=== PATIENT | female | born 1975 | race Caucasian/White ===

== ENCOUNTER 2025-11-02 10:31 | Inpatient (IN) | payer OTHER ==
[2025-11-02] VITALS (36 sets, daily range): BP systolic 83–122; BP diastolic 64–87
[~2025-11-02] VITALS: Ht 162.6 cm; Wt 52.3 kg
[2025-11-02] MEDS ORDERED: DiphenhydrAMINE HCl 50 MG/ML 1ML Vial ONE (10:38)
[2025-11-02] MEDS ORDERED: Dexamethasone Sod Phos 10 MG/ML 1ML VIAL ONE (10:38)
[2025-11-02] MEDS ORDERED: Ipratropium/Albuterol SulF 2.5-0.5MG/3 ML Amp ONE (10:40)
[2025-11-02] MEDS ORDERED: EpiNEPhrine 1 MG/1 ML 1ML Vial ONE (10:40)
[2025-11-02] MEDS ORDERED: Albuterol 2.5 MG/3 ML VIAL ONE (10:44)
[2025-11-02] MEDS ORDERED: EpiNEPhrine 1 MG/1 ML 1ML Vial IM ONE (10:45)
[2025-11-02] MEDS ORDERED: Albuterol 2.5 MG/3 ML VIAL INH SCH (10:45)
[2025-11-02] MEDS ORDERED: Dexamethasone Sod Phos 10 MG/ML 1ML VIAL IV ONE (10:45)
[2025-11-02] MEDS ORDERED: DiphenhydrAMINE HCl 50 MG/ML 1ML Vial IV ONE ×2 (10:45→16:23)
[2025-11-02] MEDS ORDERED: NS 1,000 ML IV ONE (10:50)
[2025-11-02 10:59] LABS: BASOPHILS ABSOLUTE AUTO 0.10 K/mm3 (0.00-0.23); BASOPHILS PERCENT AUTO 1 % (0-2); EOSINOPHILS ABSOLUTE AUTO 0.46 K/mm3 (0.00-0.68); EOSINOPHILS PERCENT AUTO 4 % (0-6); Hematocrit 40.4 % (33.0-51.0); Hemoglobin 12.6 g/dL (11.5-16.0); IMMATURE GRAN ABSOLUTE AUTO 0.25 K/mm3 (0.00-0.10); IMMATURE GRAN PERCENT AUTO 2 % (0-1); LYMPHOCYTES ABSOLUTE AUTO 4.69 K/mm3 (0.84-5.20); LYMPHOCYTES PERCENT AUTO 35 % (21-46); MONOCYTES ABSOLUTE AUTO 0.68 K/mm3 (0.16-1.47); MONOCYTES PERCENT AUTO 5 % (4-13); Mean Corpuscular HGB Conc 31.2 g/dL (31.5-36.5); Mean Corpuscular Volume 96 fL (80-100); NEUTROPHILS ABSOLUTE AUTO 7.05 K/mm3 (1.96-9.15); NEUTROPHILS PERCENT AUTO 53 % (41-73); NRBC ABSOLUTE 0.00 K/mm3 (0.00-0.02); NRBC Auto 0.0 /100 WBC (0.0-0.2); Platelet Count 346 K/mm3 (150-400); RDW Coefficient Variation 14.3 % (11.7-14.2); RDW Standard Deviation 50.5 fL (35.1-46.3)
[2025-11-02] MEDS ORDERED: Midazolam HCl 1MG / ML 2ML Vial IV ONE ×2 (11:00→16:23)
[2025-11-02 11:16] LABS: Alanine Aminotransfer (ALT/SGP 47.0 U/L (12-78); Albumin, Blood 3.7 g/dL (3.4-5.0); Albumin/Globulin Ratio 1.1 (0.8-1.8); Anion Gap 18.0 mmol/L (3-11); Aspartate Aminotrans (AST/SGOT 39.0 U/L (12-37); Bilirubin, Total 0.4 mg/dL (0.1-1.0); Blood Urea Nitrogen 11.0 mg/dL (8-24); CO2, Blood 18.0 mmol/L (21-32); Calcium, Blood 8.7 mg/dL (8.5-10.1); Chloride, Blood 106.0 mmol/L (98-108); Creatinine, Blood 0.79 mg/dL (0.40-1.00); Globulin, Blood 3.5 g/dL (2.2-4.0); Glucose, Blood 333.0 mg/dL (70-99); Potassium, Blood 3.8 mmol/L (3.5-5.5); Sodium, Blood 138.0 mmol/L (136-145); Total Protein, Blood 7.2 g/dL (6.4-8.2)
[2025-11-02 11:58] LABS: Influenza A, PCR NEGATIVE (NEGATIVE); Influenza B, PCR NEGATIVE (NEGATIVE); Resp Syncytial Virus, PCR NEGATIVE (NEGATIVE); SARS-Cov-2 (COVID-19) PCR, MMC NEGATIVE (NEGATIVE)
[2025-11-02] MEDS ORDERED: Midazolam HCL 1 MG/ML 5MLVIAL IV ONE (12:10)
[2025-11-02 12:13] LABS: U Amphetamine Screen Not Detected; U Barbiturate Screen Not Detected; U Benzodiazapine Screen Not Detected; U Buprenorphine Screen Not Detected; U Cannabinoids Screen Not Detected; U Cocaine Screen Not Detected; U Methadone Screen Not Detected; U Methamphetamine Screen Not Detected; U Opiates Screen Not Detected; U Oxycodone Screen Not Detected; U Phencyclidine Screen Not Detected
[2025-11-02] MEDS ORDERED: Hair, Skin & N1 EACH PO (12:34)
[2025-11-02] MEDS ORDERED: FLU VACC TS2025-26(6MOS UP)/PF 45 MCG/0.5 ML SYRINGE IM SCH (12:45)
[2025-11-02] MEDS ORDERED: NS 1,000 ML IV SCH (13:00)
--- NOTE | 2025-11-02 13:31 | NUR ---
PT ARRIVES TO ICU ROOM 9. PT INTUBATED, CURRENT VENT SETTINGS ACVC: 20/380/5/35%, BILATERAL UPPER WRIST RESTRAINTS. PROPOFOL RUNNIING AT 25MCG/KG/MIN, FENTANYL 25MCG/HR. SINUS TACH VIA CONTINUOUS MONITOR, RATE OF 110S. BP STABLE, MAP>65. PT AFEBRILE.
[2025-11-02] MEDS ORDERED: Albuterol 2.5 MG/3 ML VIAL INH PRN (14:20)
[2025-11-02] MEDS ORDERED: Ipratropium/Albuterol SulF 2.5-0.5MG/3 ML Amp INH SCH (14:20)
[2025-11-02] MEDS ORDERED: ALBU90OI INH (14:55)
[2025-11-02] MEDS ORDERED: Etomidate 2MG / ML 10ML Vial IV ONE (16:23)
[2025-11-02] MEDS ORDERED: SuccINYLCHOLINE Chloride 100 MG/5 ML 5MLSYR IV ONE (16:23)
[2025-11-02] MEDS ORDERED: Naloxone HCl 1MG / ML 2ML SYR IV ONE (16:23)
[2025-11-02] MEDS ORDERED: Propofol 10mg/ml 20 ml Vial (Procedural) IV ONE (16:23)
--- NOTE | 2025-11-02 19:07 | NUR ---
SHIFT SUMMARY ACQUIRED PT AT APPROX 1530. NEURO: RESPONSIVE TO LOUD VERBAL STIMULI, +GAG, COUGH AND SWALLOW. OPENS EYES BUT DOES NOT TRACK. CURRENTLY SEDATED WITH PROPOFOL AND FENTANYL. NOT FOLLOWING COMMANDS. CARDIAC: SINUS TACH, HR 100-110S. SBP 80-110S. REPEAT EKG COMPLETED. PLAN FOR ECHO TOMORROW. PULM: LUNGS CLEAR TO AUSCULATION BUT DIM IN BILAT BASES.ET. 7.5CM, 24 AT THE TEETH. INTUBATED ACVC 20/380/5/30. INITALLY SOME THICK WHITE SPUTUM FROM ET TUBE BUT NOT RESOLVED. GI: ABDOMEN IS SOFT/NON TENDER, NORMOACTIVE BOWEL TONES. : HOFFMAN CATH IN PLACE DRAINING CLEAR YELLOW URINE TO GRAVITY. SKIN: INTACT. AT BEDSIDE PROVIDED EDUCATION AND PLAN OF CARE. HER SISTER AND FATHER
[2025-11-02] MEDS ORDERED: Cetylpyridinium Chloride 1 EA MISC MT SCH (20:00)
[2025-11-02 20:10] LABS: Acinetobacter baumannii DNA Not Detected copy/mL (NOT DETECT); Chlamydia pneumonia Not Detected (NOT DETECT); Enterobacter cloacae DNA Not Detected copy/mL (NOT DETECT); Escherichia coli DNA Not Detected copy/mL (NOT DETECT); Haemophilus influenzae DNA Not Detected copy/mL (NOT DETECT); Human Coronavirus RNA Not Detected (NOT DETECT); Klebsiella aerogenes DNA Not Detected copy/mL (NOT DETECT); Klebsiella oxytoca DNA Not Detected copy/mL (NOT DETECT); Klebsiella pneumoniae DNA Not Detected copy/mL (NOT DETECT); Moraxella catarrhalis DNA Not Detected copy/mL (NOT DETECT); Proteus sp DNA Not Detected copy/mL (NOT DETECT); Pseudomonas aeruginosa DNA Not Detected copy/mL (NOT DETECT); Serratia marcescens DNA Not Detected copy/mL (NOT DETECT); Staphylococcus aureus DNA Not Detected copy/mL (NOT DETECT); Streptococcus agalactiae DNA Not Detected copy/mL (NOT DETECT); Streptococcus pneumoniae DNA Not Detected copy/mL (NOT DETECT); Streptococcus pyogenes DNA Not Detected copy/mL (NOT DETECT)
[2025-11-02 20:11] LABS: Human Metapneumovirus RNA Not Detected (NOT DETECT); Influenza virus A RNA Not Detected (NOT DETECT); Influenza virus B RNA Not Detected (NOT DETECT); Respiratory syncytial Vir RNA Not Detected (NOT DETECT); Rhinovirus+Enterovirus RNA Detected (NOT DETECT)
[2025-11-02] MEDS ORDERED: LORazepam 2 MG/ML 1ML Injection IV PRN (20:15)
--- NOTE | 2025-11-02 20:50 | NUR ---
ASSUMPTION OF CARE: ASSUMED CARE AT START OF SHIFT (1899). REPORT RECEIVED FROM DAY SHIFT RN. PT IS DOING WELL AND RESTING IN BED. PT IS ALERT TO STIMULI AND WILL TRY TO SIT UP AND LEAV FORWARD WHEN THERE IS TOO MUCH STIMULUS PRESENT. THEY ARE INTUBATED AND ON PROPOFOL AND FENTANYL GTT PER EMR ORDERS. LUNG SOUNDS ARE CLEAR AND EQUAL, VENT SETTINGS: ACVC- 20/380/5/30%. SINUS TACH WITH SBP: 80-90'S MAP >65 HR: 100'S. IV: PERIPHERAL IN LAC, RAC, AND R HAND. HOFFMAN CATHETER IN PALCE AND DRAINING TO GRAVITY. LINES, CORDS, AND TUBES PLACED OUT OF REACH. CALL LIGHT PLACED WITHIN REACH.
[2025-11-03] VITALS (66 sets, daily range): BP systolic 83–135; BP diastolic 61–103
[2025-11-03] MEDS ORDERED: Hydrogen Peroxide 1.5 % Solution MT SCH
[2025-11-03 03:49] LABS: pH Blood Venous 7.39 (7.34-7.37)
[2025-11-03 04:23] LABS: Hematocrit 38.0 % (33.0-51.0); Hemoglobin 12.3 g/dL (11.5-16.0); Mean Corpuscular HGB Conc 32.4 g/dL (31.5-36.5); NRBC ABSOLUTE 0.00 K/mm3 (0.00-0.02); NRBC Auto 0.0 /100 WBC (0.0-0.2); Platelet Count 278 K/mm3 (150-400); RDW Coefficient Variation 14.7 % (11.7-14.2); RDW Standard Deviation 49.2 fL (35.1-46.3)
[2025-11-03 04:24] LABS: Mean Corpuscular Volume 91 fL (80-100)
[2025-11-03 05:05] LABS: Magnesium, Blood 2.4 mg/dL (1.6-2.4)
[2025-11-03 05:47] LABS: Albumin, Blood 3.6 g/dL (3.4-5.0); Anion Gap 9 mmol/L (3-11); Blood Urea Nitrogen 16 mg/dL (8-24); CO2, Blood 21 mmol/L (21-32); Calcium, Blood 8.3 mg/dL (8.5-10.1); Chloride, Blood 114 mmol/L (98-108); Creatinine, Blood 0.77 mg/dL (0.40-1.00); Glucose, Blood 144 mg/dL (70-99); Phosphorus, Blood 2.0 mg/dL (2.5-4.9); Potassium, Blood 3.6 mmol/L (3.5-5.5); Sodium, Blood 140 mmol/L (136-145)
--- NOTE | 2025-11-03 06:21 | NUR ---
SHIFT SUMMARY: PT IS DOING WELL AND RESTING IN BED. NO ACUTE CHANGES THROUGHOUT THE SHIFT. PT REMAINS INTUBATED AND SEDATED. PT ALERT TO PAINFUL STIMULI. PROPOFOL AND FENTANYL GTT PER EMR ORDERS. VITAL SIGNS REMAIN STABLE. VENT: ACVC- 20/380/5/30%. HOFFMAN CATHETER IN PLACE AND DRAINING TO GRAVITY. LINES, CORDS, AND TUBES PLACED OUT OF REACH. CALL LIGHT PLACED WITHIN REACH.
--- NOTE | 2025-11-03 07:18 | NUR ---
ASSUMED CARE THIS RN ASSUMED CARE OF PATIENT AT 0700 WITH PRECEPTOR MAURISIO LOGAN. PATIENT IS RESTING W/ EYES CLOSED INTUBATED AND SEDATED DURING BSSR. SHE HAS SBW RESTRAINTS. VENT SETTINGS ARE 20/380/5/30% WITH HER SPO2 >96%. SYSTOLIC BP >90, MAP >65. MONITOR SHOWS NSR 80-90S. PATIENT IS ON PROPOFOL 50MCG/KG/MIN, FENTANYL 50MCG/HR AND NS. HER OG TUBE IS CLAMPED. PATIENT HAS HOFFMAN CATHETER PATENT AND DRAINING URINE TO GRAVITY. PATIENT'S SIGNIFICANT OTHER IS SLEEPING IN RECLINER NEAR BED.
[2025-11-03] MEDS ORDERED: Potassium Phosphate Dibasic 20 MM in Dextrose 5% 500 ML IV STA (07:24)
--- NOTE | 2025-11-03 07:45 | NUR ---
PATIENT BELONGING WEDDING BAND REMOVED FROM LEFT RING FINGER AND PLACED IN SPECIMEN CUP IN LOCK BOX IN ROOM. PATIENT FATHER INFORMED D/T PATIENT BEING INTUBATED AND SEDATED.
[2025-11-03] MEDS ORDERED: Enoxaparin 40 MG/0.4 ML SYR SC SCH (09:00)
--- NOTE | 2025-11-03 16:01 | NUR ---
PATIENT BELONGING WEDDING BAND FROM LOCK BOX AND RING FROM RIGHT HAND RING FINGER TAKEN BY PATIENT'S SIGNIFICANT OTHER FOR SAFEKEEPING.
--- NOTE | 2025-11-03 17:59 | NUR ---
SHIFT SUMMARY NO ACUTE EVENTS THIS SHIFT. PATIENT WAS EXTUBATED THIS AM AT 1020 AND RESPONDED WELL. SHE HAS BEEN ALERT AND ORIENTED TO PLACE, SITUATION, PERSON, AND FAMILY BUT CONFUSED TO HOW SHE GOT INTO THE HOSPITAL. SHE ASKS THE SAME QUESTIONS REPETITIVELY. OTHERWISE HER SPO2 HAS BEEN >98% WITH EVEN UNLABORED RESPIRATIONS. HER LUNGS HAVE BEEN COARSE W/ WHEEZING WITH A PERSISTENT COUGH. SHE EXPECTORATES A MODERATE AMOUNT OF THICK WILEY/CLEAR SECRETIONS. SYSTOLIC BP >120, MAP >90. MONITOR SHOWS NSR. PATIENT STATES SHE HAS CHEST PAIN FROM HER STERNUM AND DECLINES OPIOID PAIN MEDICATION. SHE ELECTS TO DO NONPHARMACOLOGICAL MEASURES LIKE REST, BRACING WITH A PILLOW, AND DISTRACTION. SHE IS ABLE TO USE A BSC WITH 2 NURSE ASSIST. SHE IS WEAK AND UNSTEADY ON HER FEET. BED IN LOWEST POSITION, CALL LIGHT IN REACH.
--- NOTE | 2025-11-03 19:41 | NUR ---
ASSUME CARE: BEDSIDE SHIFT REPORT RECIEVED FROM DAYSHIFT RN. PT A/Ox4 AND ABLE TO ANSWER QUESTIONS APPROPRIATELY, PT IS OCCASIONALLY CONFUSED ON WHY SHE IS HERE, AND EVENTS OF THE DAY, BUT EASILY REDIRECTABLE. SBP 120s, MAP>65. PT DENIES CP OR PRESSURE, BUT DOES COMPLAIN OF SOME RIB PAIN FROM CPR SHE RECEIVED. MONITOR SHOWS SINUS TACH, RATE 110s. SPO2>90% ON RA, LS COARSE, WITH OCCASIONAL WHEEZES CLEARED BY COUGHING. PT ABLE TO USE BSC WITH 2P ASSIST, WEAK AND UNSTEADY ON FEET. PLAN FOR NPO AT 0000 FOR PRODEDURE IN AM. CALL LIGHT IN REACH AND BED ALARM ON FOR SAFETY. WILL UPDATE NEEDED.
[2025-11-04] VITALS (31 sets, daily range): BP systolic 105–145; BP diastolic 70–131
[2025-11-04 03:54] LABS: BASOPHILS ABSOLUTE AUTO 0.03 K/mm3 (0.00-0.23); BASOPHILS PERCENT AUTO 0 % (0-2); EOSINOPHILS ABSOLUTE AUTO 0.01 K/mm3 (0.00-0.68); EOSINOPHILS PERCENT AUTO 0 % (0-6); Hematocrit 32.6 % (33.0-51.0); Hemoglobin 11.0 g/dL (11.5-16.0); IMMATURE GRAN ABSOLUTE AUTO 0.27 K/mm3 (0.00-0.10); IMMATURE GRAN PERCENT AUTO 1 % (0-1); LYMPHOCYTES ABSOLUTE AUTO 0.91 K/mm3 (0.84-5.20); LYMPHOCYTES PERCENT AUTO 4 % (21-46); MONOCYTES ABSOLUTE AUTO 0.58 K/mm3 (0.16-1.47); MONOCYTES PERCENT AUTO 2 % (4-13); Mean Corpuscular HGB Conc 33.7 g/dL (31.5-36.5); Mean Corpuscular Volume 89 fL (80-100); NEUTROPHILS ABSOLUTE AUTO 22.57 K/mm3 (1.96-9.15); NEUTROPHILS PERCENT AUTO 93 % (41-73); NRBC ABSOLUTE 0.00 K/mm3 (0.00-0.02); NRBC Auto 0.0 /100 WBC (0.0-0.2); Platelet Count 263 K/mm3 (150-400); RDW Coefficient Variation 15.3 % (11.7-14.2); RDW Standard Deviation 50.2 fL (35.1-46.3)
[2025-11-04 04:37] LABS: Anion Gap 8.0 mmol/L (3-11); Blood Urea Nitrogen 13.0 mg/dL (8-24); CO2, Blood 23.0 mmol/L (21-32); Calcium, Blood 8.4 mg/dL (8.5-10.1); Chloride, Blood 112.0 mmol/L (98-108); Creatinine, Blood 0.55 mg/dL (0.40-1.00); Glucose, Blood 130.0 mg/dL (70-99); Magnesium, Blood 2.2 mg/dL (1.6-2.4); Phosphorus, Blood 3.8 mg/dL (2.5-4.9); Potassium, Blood 4.4 mmol/L (3.5-5.5); Sodium, Blood 139.0 mmol/L (136-145)
--- NOTE | 2025-11-04 05:06 | NUR ---
SHIFT SUMMARY: PT A/Ox4, COOPERATIVE W/CARE, AND ABLE TO SLEEP FOR MOST OF THE NIGHT. PT TEARFUL AND ANXIOUS ABOUT HER CURRENT SITUATION. VSS. MONITOR SHOWS SINUS RYTHM TO SINUS TACH, RATE 80-100s. PT DESAT TO 88% W/SLEEP, 1L NC PLACED FOR SPO2>90%. PT HAS HARSH PRODUCTIVE COUGH. MEDICATED PER EMAR FOR PAIN IN HER RIBS. PT UP TO BSC 1P ASSIST. NPO AT 0000 FOR AM PROCEDURE. CALL LIGHT IN REACH. WILL REPORT TO ONCOMING RN.
--- NOTE | 2025-11-04 08:00 | NUR ---
RECEIVED REPORT FROM [facility] NURSE. PT IS SLEEPING BUT AWAKES TO VERBAL STIMULI. PT ABLE TO STATE NAME AND , WAS UNSURE WHAT HOSPITAL SHE WAS AT. REORIENTED EASILY. PT ON 1L NC WHILE SLEEPING. PT IN NSR, HR IN 70-80S MAP >65. PT AMBULATES TO [facility] [place] WITH NURSE ASSIST. PT HAS TWO PIVS, WNL. PT REPORTS SORENES LOCATED ON HER CHEST D/T CPR. PT HAS FAMILY AT BEDSIDE, CALL LIGHT WITHIN REACH AND NO NEEDS REPORTED AT THIS TIME.
--- NOTE | 2025-11-04 11:11 | NUR ---
CONSULT RECEIVED AND REVIEWED. NO POLST/AD ON FILE OR THROUGH OPR.
[2025-11-04] MEDS ORDERED: Ipratropium/Albuterol SulF 2.5-0.5MG/3 ML Amp INH SCH (11:35)
[2025-11-04] MEDS ORDERED: Albuterol HFA200 ACT/6.7 GM INH INH PRN (11:40)
[2025-11-04] MEDS ORDERED: Formoterol/Mometasone MDI 5/200 mcg 13 GM INH SCH (11:40)
[2025-11-04] MEDS ORDERED: Heparin Sodium 1000 Units/ML 10ML MDV ONE (12:08)
[2025-11-04] MEDS ORDERED: Verapamil HCL 2.5 MG/ML 2ML Injection ONE (12:08)
[2025-11-04] MEDS ORDERED: NS 250 ML IV ONE (12:09)
[2025-11-04] MEDS ORDERED: Nitroglycerin 2 MG/20 ML BTL ONE ×2 (12:09→12:38)
[2025-11-04] MEDS ORDERED: NS 1,000 ML IV ONE ×2 (12:09→12:13)
[2025-11-04] MEDS ORDERED: NiCARdipine HCL 1,000 MCG/5 ML SYR ONE (12:11)
[2025-11-04] MEDS ORDERED: Midazolam HCl 1MG / ML 2ML Vial ONE (12:57)
[2025-11-04] MEDS ORDERED: FentaNYL Citrate 50 MCG/ML 2 ML Injection ONE (12:57)
--- NOTE | 2025-11-04 18:32 | NUR ---
SHIFT SUMMARY PT A&OX4, FOLLOWS COMMANDS AND MAKES NEEDS KNOWN. PT ON RA WHILE AWAKE, 1-2L NC WHILE SLEEPING, SPO2 >92%. PT DENIES ANY SOB. PT IN NSR, HR IN 70-80S, AND MAP >65. PT REPORTS SOME SORENESS/PAIN ON HER CHEST D/T CPR AND HX OF STERNUM INJURIES. PT AMBULATES TO BSC TO VOID. NO BM TODAY. NO ABD PAIN. PT WENT TO AUDIOVISUAL EQUIPMENT OPERATOR FOR PCI, PT TOLERATED PROCEDURE WELL. TR BAND COMPLETELY DEFLATED AT 1700. ARM BOARD IN PLACE A REMINDER BECAUSE PT ATTEMPTS TO USE RIGHT HAND. INCISION SITE ON RIGHT RADIAL, WNL. SIGNIFICANT OTHER AND MOM AT BEDSIDE. PT HAS TWO PIVS, WNL. STATUS CHANGE TO PCU. CALL LIGHT WITHIN REACH AND NO NEEDS NOTED AT THIS TIME.
--- NOTE | 2025-11-04 21:20 | NUR ---
ASSUMPTION OF CARE: THIS RN TO ASSUME CARE OF PT AT 1920. PT RESTING IN BED WITH NO COMPLAINTS OR NEEDS AT THIS TIME. REMAINS ON CARDIAC AND VS MONITORING. CALL LIGHT IN REACH.
[2025-11-05 00:01] VITALS: BP 122/87
[2025-11-05 04:24] VITALS: BP 130/92
--- NOTE | 2025-11-05 06:29 | NUR ---
SHIFT SUMMARY: PT A&OX4. FOLLOWS COMMANDS AND MAKES NEEDS KNOWN TO STAFF. PT WAS ASSISTED TO THE BSC A COUPLE TIMES THROUGHOUT THE NIGHT. REPORTS RIB PAIN WITH MOVEMENT BUT FEELS BETTER WITH REST. PT HAS BEEN ABLE TO REST MOST OF THE NIGHT. DENIES ANY CARDIAC, RESPIRATORY OR NEURO SYMPTOMS. R RADIAL SITE REMAINS WNL. FREE OF ANY BLEEDING, HEMATOMA OR SWELLING. NS CONTINUES. NO SIGNIFICANT EVENTS HAPPENED DURING THIS SHIFT. WILL CONTINUE TO CARE FOR PT TILL END OF SHIFT.
[2025-11-05 07:00] LABS: Calcium, Ionized (POC) 1.20 mmol/L (1.10-1.46); Chloride (POC) 104 mmol/L (98-108); Creatinine (POC) 1.0 mg/dL (0.6-1.0); Glucose (ISTAT POC) 325 mg/dL (70-99); Hematocrit (POC) 41.0 % (36.0-46.0); Hemoglobin (POC) 13.9 g/dL (12.0-16.0); Potassium (POC) 3.9 mmol/L (3.5-5.5); Sodium (POC) 140 mmol/L (135-148); Total CO2 (POC) 16 mmol/L (21-32)
[2025-11-05 07:01] LABS: BASOPHILS ABSOLUTE AUTO 0.01 K/mm3 (0.00-0.23); BASOPHILS PERCENT AUTO 0 % (0-2); EOSINOPHILS ABSOLUTE AUTO 0.00 K/mm3 (0.00-0.68); EOSINOPHILS PERCENT AUTO 0 % (0-6); Hematocrit 35.8 % (33.0-51.0); Hemoglobin 11.9 g/dL (11.5-16.0); IMMATURE GRAN ABSOLUTE AUTO 0.10 K/mm3 (0.00-0.10); IMMATURE GRAN PERCENT AUTO 1 % (0-1); LYMPHOCYTES ABSOLUTE AUTO 2.29 K/mm3 (0.84-5.20); LYMPHOCYTES PERCENT AUTO 12 % (21-46); MONOCYTES ABSOLUTE AUTO 1.05 K/mm3 (0.16-1.47); MONOCYTES PERCENT AUTO 6 % (4-13); Mean Corpuscular HGB Conc 33.2 g/dL (31.5-36.5); Mean Corpuscular Volume 89 fL (80-100); NEUTROPHILS ABSOLUTE AUTO 15.17 K/mm3 (1.96-9.15); NEUTROPHILS PERCENT AUTO 82 % (41-73); NRBC ABSOLUTE 0.00 K/mm3 (0.00-0.02); NRBC Auto 0.0 /100 WBC (0.0-0.2); Platelet Count 276 K/mm3 (150-400); RDW Coefficient Variation 15.1 % (11.7-14.2); RDW Standard Deviation 49.1 fL (35.1-46.3)
[2025-11-05 07:22] LABS: Alanine Aminotransfer (ALT/SGP 56.0 U/L (12-78); Albumin, Blood 3.3 g/dL (3.4-5.0); Albumin/Globulin Ratio 0.9 (0.8-1.8); Anion Gap 9.0 mmol/L (3-11); Aspartate Aminotrans (AST/SGOT 38.0 U/L (12-37); Bilirubin, Total 0.6 mg/dL (0.1-1.0); Blood Urea Nitrogen 13.0 mg/dL (8-24); CO2, Blood 25.0 mmol/L (21-32); Calcium, Blood 8.4 mg/dL (8.5-10.1); Chloride, Blood 109.0 mmol/L (98-108); Creatinine, Blood 0.51 mg/dL (0.40-1.00); Globulin, Blood 3.6 g/dL (2.2-4.0); Glucose, Blood 105.0 mg/dL (70-99); Potassium, Blood 4.1 mmol/L (3.5-5.5); Sodium, Blood 139.0 mmol/L (136-145); Total Protein, Blood 6.9 g/dL (6.4-8.2)
--- NOTE | 2025-11-05 08:00 | NUR ---
RECEIVED REPORT FROM [facility] NURSE. PT IS A&OX4, FOLLOWS COMMANDS AND MAKES NEEDS KNOWN. PT ON RA, SPO2 >92%. PT IN NSR, HR IN 80-90S, MAP >65. PT REPORTS SORENESS ON HER CHEST D/T CPR AND PREVIOUS STERNUM INJURIES. PT IS NURSE ASSIST TO BSC, WEAK GAIT. PT REPORTS SOME CHANGE IN MOBILITY IN RIGHT HAND, IMPROVED FROM YESTERDAY. PT HAS TWO PIVS, WNL. PT HAS ARM BOARD IN PLACE ON RIGHT ARM TO REMIND PT NOT TO USE RIGHT HAND. INCISION WNL. CALL LIGHT WITHIN REACH WITH NO NEEDS NOTED AT THIS TIME.
[2025-11-05 10:04] VITALS: BP 132/90
[2025-11-05 14:13] VITALS: BP 117/94
--- NOTE | 2025-11-05 14:24 | NUR ---
TRANSFER RM [id number] REPORT RECEIVED FROM [facility] ICU. PT ARRIVED VIA W/C ACCOMPANIED BY RN. PT AWAKE AND ALERT. PT C/O THAT LEFT LEG/ARM ARE WEAK BUT IMPROVING. FAMILY ATBEDSIDE. VSS. RIGHT RADIAL SITE WITH BRACE ON. CMS TO RIGHT FINGERS WNL. CARE ONGOING.
--- NOTE | 2025-11-05 15:38 | NUR ---
PT TRANSFER GAVE REPORT TO RECEIVING NURSE. GATHERED ALL PATIENT BELONGINGS, CONFIRMED WTH PATIENT AND FAMILY ALL ITEMS WERE COLLECTED. TRANSPORTED VIA WHEELCHAIR WITH FAMILY. PT ARRIVED TO MEDICAL FLOOR APPROX AT 1400.
[2025-11-05 16:36] LABS: pH Blood Venous 7.18 (7.34-7.37)
[2025-11-05 16:38] LABS: pH Blood Venous 6.95 (7.34-7.37)
--- NOTE | 2025-11-05 16:39 | NUR ---
ETOH FAMILY RELATED THAT PT IS CLEAN AND SOBER X13 MONTHS.
--- NOTE | 2025-11-05 18:03 | NUR ---
NOTE PT UP AD YVETTE IN ROOM. RIGHT FA BRACE ON. PT HAVING TROUBLE WITH COORDINATION LEFT UE. SHE IS RIGHT HANDED. CONT BIOX ON PER ORDER. PRODUCTIVE COUGH OF DARK, YELLOW SPUTUM. SHE IS USING THE FLUTTER VALVE. VSS. EDUCATED PT/FAMILY ABOUT LOW SALT DIET, WEIGHING DAILY. VSS. VOIDING WELL. PT WANTS TO GO HOME TOMORROW.
[2025-11-05 19:45] VITALS: BP 110/79
[2025-11-06 00:16] VITALS: BP 113/84
[2025-11-06 04:25] VITALS: BP 106/85
[2025-11-06 04:54] LABS: BASOPHILS ABSOLUTE AUTO 0.03 K/mm3 (0.00-0.23); BASOPHILS PERCENT AUTO 0 % (0-2); EOSINOPHILS ABSOLUTE AUTO 0.17 K/mm3 (0.00-0.68); EOSINOPHILS PERCENT AUTO 1 % (0-6); Hematocrit 40.8 % (33.0-51.0); Hemoglobin 13.6 g/dL (11.5-16.0); IMMATURE GRAN ABSOLUTE AUTO 0.16 K/mm3 (0.00-0.10); IMMATURE GRAN PERCENT AUTO 1 % (0-1); LYMPHOCYTES ABSOLUTE AUTO 3.81 K/mm3 (0.84-5.20); LYMPHOCYTES PERCENT AUTO 26 % (21-46); MONOCYTES ABSOLUTE AUTO 1.04 K/mm3 (0.16-1.47); MONOCYTES PERCENT AUTO 7 % (4-13); Mean Corpuscular HGB Conc 33.3 g/dL (31.5-36.5); Mean Corpuscular Volume 89 fL (80-100); NEUTROPHILS ABSOLUTE AUTO 9.34 K/mm3 (1.96-9.15); NEUTROPHILS PERCENT AUTO 64 % (41-73); NRBC ABSOLUTE 0.00 K/mm3 (0.00-0.02); NRBC Auto 0.0 /100 WBC (0.0-0.2); Platelet Count 297 K/mm3 (150-400); RDW Coefficient Variation 14.8 % (11.7-14.2); RDW Standard Deviation 47.8 fL (35.1-46.3)
[2025-11-06 05:22] LABS: Anion Gap 8.0 mmol/L (3-11); Blood Urea Nitrogen 10.0 mg/dL (8-24); CO2, Blood 28.0 mmol/L (21-32); Calcium, Blood 8.8 mg/dL (8.5-10.1); Chloride, Blood 104.0 mmol/L (98-108); Creatinine, Blood 0.54 mg/dL (0.40-1.00); Glucose, Blood 103.0 mg/dL (70-99); Potassium, Blood 3.8 mmol/L (3.5-5.5); Sodium, Blood 136.0 mmol/L (136-145)
--- NOTE | 2025-11-06 06:15 | NUR ---
SHIFT SUMMARY; PT A/OX4, PLEASANT, AND 1 PERSON ASSIST TO THE RESTROOM. DIMINISHED LUNG SOUNDS THROUGHOUT LUNG FIELD UPON AUSCULTATION. PT HAS GUARDED COUGH DUE TO PAIN IN STERNUM. COUGH IS PRODUCTIVE, PT DESCRIBES THICK, YELLOW/GREEN IN COLOR. PT MEDICATED PER EMAR FOR PAIN. RT AT BEDSIDE FOR BREATHING TXS. PT ON 1 L O2 NC AT BEDTIME AND EARLY THIS MORNING TO KEEP SATS >89% CONSISTENTLY. LABS DRAWN THIS AM. PT ON TELE W/ SR IN THE 80S. VSS. BED IN LOWEST POSITION AND CALL LIGHT WITHIN REACH.
[2025-11-06 07:33] VITALS: BP 101/80
[2025-11-06 11:18] VITALS: BP 99/74
--- NOTE | 2025-11-06 15:32 | NUR ---
AMBULATION PT WITH THIS NURSE WALKED AROUND THE FLOOR. GAIT STEADY. DENIED DIZZINESS OR SOB. SHE TALKED ABOUT HOW HER THINKING FEELS THICK AND SLOW. SHE IS EXHIBITING DIFFICULTY WITH MULTI STEP PLANNING BUT TAKES CUES WELL.
[2025-11-06] MEDS ORDERED: Naproxen 250 MG TAB PO SCH (17:00)
[2025-11-06 17:01] VITALS: BP 96/66
--- NOTE | 2025-11-06 18:25 | NUR ---
NOTE PT ALERT, THINKING IS FUZZY. SHE FINDS SOUND AND PEOPLE OVER STIMULATING. DR PEREA STARTED HER ON AN ANTI ANXIETY AND ROUTINE PAIN MEDICATION. USING FLUTTER VALVE. LESS PRODUCTIVE COUGH TODAY. KPAD FOR RIB/CHEST WALL PAIN HELPFUL. REFUSED SHOWER. WALKED AROUND THE THIRD FLOOR. UNSTEADY AT TIMES. IF SHE WAS TALKING AND WALKING AT THE SAME TIME SHE WOULD LOOSE HER BALANCE. SHE CORRECTED HERSELF. VSS. TELEMETRY OFF. FAMILY INITIATED A NEW PT APPOINTMENT AT [facility] FOR HER. PLAN FOR NIGHT TIME OXIMETRY STUDY FOR CONCERNS OF DESATURATIONS WHILE SLEEPING. FAMILY REALTED THAT SHE WAKES UP GASPING AT TIMES. CONT BIOX ON. RIGHT RADIAL SITE WITH TEGADERM ON. NO HEMATOMA, SWELLING OR DISCOMFORT NOTED. CAP REFILL TO RIGHT FINGERS BRISK. .
[2025-11-06 19:37] VITALS: BP 96/69
[2025-11-07 00:04] VITALS: BP 107/74
[2025-11-07 04:12] VITALS: BP 106/73
--- NOTE | 2025-11-07 06:14 | NUR ---
SHIFT SUMMARY; PT A/OX4, PLEASANT, AND SBA TO THE RESTROOM. PT REPORTS IMPROVEMENT IN HER PAIN W/ THE NEW ANTI-INFLAMMATORY MEDICATION. PT'S AMBULATION HAS IMPROVED DUE TO DECREASED WEAKNESS. PT OBSERVED TO HAVE INTERMITTENT CONFUSION W/ SIMPLE TASKS AND BECOMES FRUSTRATED DUE TO THIS. SLEEP OXIMETRY COMPLETED THIS SHIFT. PT NEEDING TO USE THE RESTROOM ONCE DURING RECORDED TIME. PT LUNGS SOUND LESS DIMINISHED UPON AUSCULTATION. VSS. BED IN LOWEST POSITION AND CALL LIGHT WITHIN REACH.
[2025-11-07] MEDS ORDERED: Ketorolac Tromethamine 15mg Vial IV PRN (06:40)
[2025-11-07 07:11] VITALS: BP 100/74
[2025-11-07 16:24] VITALS: BP 107/67
--- NOTE | 2025-11-07 19:24 | NUR ---
SHIFT SUMMARY PT IS A/OX4. INDEPENDENT IN THE ROOM. NO ACUTE CHANGES THROUGHOUT THIS SHIFT. EXPECTED DISCHARGE TODAY, AWAITING R/T NO OPEN PHARMACYS AT THIS TIME. PT IS PLEASANT AND COOPERATIVE WITH CARE AND CALLS APPROPRIATELY USING THE CALL LIGHT.
[2025-11-07 20:00] VITALS: BP 101/70
[2025-11-08 04:38] VITALS: BP 100/72
--- NOTE | 2025-11-08 04:44 | NUR ---
NO ACUTE CHANGES DURING SHIFT. PATIENT ALERT AND ORIENTED X4, ABLE TO MAKE NEEDS [place]. PATIENT ABLE TO TURN SELF IN BED, UP INDEPENDENTLY IN ROOM. PATIENT ON ROOM AIR SATING >92%. CONTINUOUS PULSE OX IN PLACE. BED IN LOW POSITION WITH WHEELS LOCKED.CALL LIGHT WITHIN REACH
[2025-11-08 08:04] VITALS: BP 104/72
[2025-11-08] MEDS ORDERED: ACET325 PO (10:59)
[2025-11-08] MEDS ORDERED: JARDIANCE10 MG PO (11:00)
[2025-11-08] MEDS ORDERED: BUSP5 PO (11:00)
[2025-11-08] MEDS ORDERED: LOSA25 PO (11:00)
[2025-11-08] MEDS ORDERED: FURO20 PO (11:00)
[2025-11-08] MEDS ORDERED: ALBU8HFA2 INH (11:00)
[2025-11-08] MEDS ORDERED: METO25ER PO (11:02)
[2025-11-08] MEDS ORDERED: DULERA 200 MCG-13 GM INH (11:03)
[2025-11-08] MEDS ORDERED: Prednisone10 MG PO (11:03)
[2025-11-08] MEDS ORDERED: NAPR500ERA PO (11:03)
--- NOTE | 2025-11-08 11:56 | NUR ---
DISCHARGE PT DISCHARGED HOME WITH SPOUSE. FOLLOW UP APPOINTMENT WITH CARDIOLOGY SCHEDULED FOR 11/20/25, INFORMATION PROVIDED TO PT. EDUCATION PROVIDED, ALL QUESTIONS ANSWERED, ALL BELONGINGS WITH PT.
== END 2025-11-08 11:39 | disposition home or self-care (01) | DRG 208 ==
LOC: ER 10:31 → EDSEX 10:31 → MEDS 12:43 → ICUE 12:43 → EDBD 12:43 → ICUE 14:08 → MEDS 11-05 14:05
PROVIDERS: Emergency Medicine; Internal Medicine; Internal Medicine Critical Care Medicine; ADMIT Internal Medicine
PROC: 5A1935Z Respiratory Ventilation, Less than 24 Consecutive Hours (ICD-10-PCS; principal; 2025-11-02)
PROC: 0BH17EZ Insertion of Endotracheal Airway into Trachea, Via Natural or Artificial Opening (ICD-10-PCS; 2025-11-02)
PROC: 0D9670Z Drainage of Stomach with Drainage Device, Via Natural or Artificial Opening (ICD-10-PCS; 2025-11-02)
PROC: 0T9B70Z Drainage of Bladder with Drainage Device, Via Natural or Artificial Opening (ICD-10-PCS; 2025-11-02)
PROC: 4A023N7 Measurement of Cardiac Sampling and Pressure, Left Heart, Percutaneous Approach (ICD-10-PCS; 2025-11-04)
PROC: B2111ZZ Fluoroscopy of Multiple Coronary Arteries using Low Osmolar Contrast (ICD-10-PCS; 2025-11-04)
PROC: B2151ZZ Fluoroscopy of Left Heart using Low Osmolar Contrast (ICD-10-PCS; 2025-11-04)
PROC: 4A033BC Measurement of Arterial Pressure, Coronary, Percutaneous Approach (ICD-10-PCS; 2025-11-04)
PROC: B2111ZZ Fluoroscopy of Multiple Coronary Arteries using Low Osmolar Contrast (ICD-10-PCS; 2025-11-04)
DX: J96.01 Acute respiratory failure with hypoxia (principal); I46.9 Cardiac arrest, cause unspecified; I50.21 Acute systolic (congestive) heart failure; I21.A1 Myocardial infarction type 2; I51.81 Takotsubo syndrome; J44.1 Chronic obstructive pulmonary disease with (acute) exacerbation; M96.89 Other intraoperative and postprocedural complications and disorders of the musculoskeletal system; Z78.1 Physical restraint status; F41.9 Anxiety disorder, unspecified; E16.2 Hypoglycemia, unspecified; F17.210 Nicotine dependence, cigarettes, uncomplicated; I25.10 Atherosclerotic heart disease of native coronary artery without angina pectoris; Y84.8 Other medical procedures as the cause of abnormal reaction of the patient, or of later complication, without mention of misadventure at the time of the procedure; D72.829 Elevated white blood cell count, unspecified; T38.0X5A Adverse effect of glucocorticoids and synthetic analogues, initial encounter; E87.6 Hypokalemia
CPT/HCPCS: 0528U; 31500; 31720; 36415; 51702; 70450; 71045; 76937; 80047; 80048; 80053; 80069; 82330; 82375; 82803; 82947; 83735; 84100; 84484; 85014; 85025; 85027; 85347; 87070; 87205; 87637; 93005; 93010; 93306; 93454; 93458; 93571; 94002; 94640; 94644; 94664; 94760; 94762; 96372; 96374; 96375; 97165; 97535; 99152; 99153; 99291-25; A9270; C1769; C1887; C1894; J0169; J0330; J0612; J1100; J1200; J1644; J1650; J1885; J2060; J2250; J2312; J2704; J2919; J3010; J7030; J7050; J7060; J7512; Q9967